=== PATIENT | male | born 1950 | race Caucasian/White ===

== ENCOUNTER 2018-12-01 09:30 | Emergency (ER) | payer MEDICAID ==
[2018-12-01 10:26] VITALS: RESP 18; O2SAT 100
--- NOTE | 2018-12-01 10:49 | C.PDOC ---
History Of Present Illness 68 y.o. male with a hx of DM and unknown right eye problems presents with worsening right eye pain and decreased vision (occurring over last 2-3 weeks) associated with photophobia for 2-3 days. Pt reports prior visit with retinal alternative financing specialist (11.29.18), Dr. Palma who reportedly injected medication for pain to right eye on Sunday. pain resolved but returned 2-3 days ago. Diagnosis from alternative financing specialist is unknown by pt or family. Denies fever, chills, DONOVAN, and any other associated symptoms. Time Seen by Provider: 12/01/18 10:32 Chief Complaint (Nursing): Eye Problem History Per: Patient, Family History/Exam Limitations: no limitations Onset/Duration Of Symptoms: Days (x3) Current Symptoms Are (Timing): Still Present Injury To Eye?: No Wears Contact Lens?: No Recent travel outside of the [place]: No Past Medical History Reviewed: Historical Data, Nursing Documentation, Vital Signs Vital Signs: Last Vital Signs Temp 98.5 F 12/01/18 09:44 Pulse 18 L 12/01/18 09:44 Resp 18 12/01/18 09:44 BP 131/66 12/01/18 09:44 Pulse Ox 100 12/01/18 09:44 Primary Care Provider: Vin Najera Family History: States: Unknown Family Hx - Social History Hx Alcohol Use: No Hx Substance Use: No - Immunization History Hx Tetanus Toxoid Vaccination: No Hx Influenza Vaccination: Yes Hx Pneumococcal Vaccination: No Review Of Systems Constitutional: Negative for: Fever, Chills Eyes: Positive for: Pain, Vision Change (decreased vision over last 2-3 weeks) Neurological: Negative for: Headache Physical Exam - Physical Exam Appears: Non-toxic, No Acute Distress, Other (wearing sunglasses) Skin: Warm, Dry Head: Atraumatic, Normacephalic Eye(s): bilateral: Abnormal Pupil (small pupils. ), right: Other (conjunctiva injected. whitish discharge in medial canthus. ) Ear(s): Bilateral: Normal Nose: Normal Oral Mucosa: Moist Throat: Normal, No Erythema, No Exudate Neurological/Psych: Oriented x3, Normal Speech, Normal Cognition ED Course And Treatment O2 Sat by Pulse Oximetry: 100 (RA) Pulse Ox Interpretation: Normal Medical Decision Making Medical Decision Making: Progress/Update: 10:48am : Paged Dr. Ang Palma (retinal specialist) 11:06am : Spoke with Dr. Jeri Otoole regarding the pt's case, informed the pt is being treated for uveitis, received steroid injection in eye on sunday 6 days ago by retinal specialist and given topical prednisone drops; recommends to start on Atropine drops BID and advised to follow-up with retinal specialist as outpatient. 13:[address] Palma returned call, made aware of d/c with atropine and f/u to be scheduled with him. Disposition Counseled Patient/Family Regarding: Diagnosis, Need For Followup - Disposition Referrals: Ang Palma MD [Medical Doctor] - Disposition: HOME/ ROUTINE Disposition Time: 11:36 Condition: GOOD Additional Instructions: Continue to use prednisone drops in right eye as prescribed. Start using one drop atropine in right eye 2 times a day. Follow up with [facility] as soon as possib.,e. Prescriptions: Atropine 1% Ophth [Atropisol 1% Ophth] 1 drop OD BID #1 bottle Instructions: Uveitis Forms: [facility] (Ukrainian), General Discharge Instructions - Clinical Impression Clinical Impression: Uveitis of right eye - PA / [employer] / Resident Statement MD/DO has reviewed & agrees with the documentation as recorded. - Scribe Statement The provider has reviewed the documentation as recorded by the Scribe (Ann-Marie Sinha) All medical record entries made by the Scribe were at my direction and personally dictated by me. I have reviewed the chart and agree that the record accurately reflects my personal performance of the history, physical exam, medical decision making, and the department course for this patient. I have also personally directed, reviewed, and agree with the discharge instructions and disposition.
[2018-12-01 11:38] VITALS: BP 121/72; PULSE 59; TEMP 98.3
== END 2018-12-01 11:43 | disposition home or self-care (01) ==
LOC: C.ER 09:30
DX: H20.9 Unspecified iridocyclitis (principal); E11.9 Type 2 diabetes mellitus without complications